=== PATIENT | female | born 1955 | race Caucasian/White ===

== ENCOUNTER 2018-05-12 10:12 | Emergency (ER) | payer BC ==
[~2018-05-12] VITALS: Ht 175.3 cm; Wt 88.5 kg
[~2018-05-12 10:12] MED LIST: CONEST1.25; HYDACE5 PO; IBUP600 PO; NAPR500 PO; [UNRECOGNIZED DRUG - REMARK]
[2018-05-12] MEDS ORDERED: AMOX250 PO (10:32)
[2018-05-12] MEDS ORDERED: DICL75ER PO (10:32)
[2018-05-12] MEDS ORDERED: ESTR2 PO (10:33)
[2018-05-12] MEDS ORDERED: NEBI5 PO (10:33)
[2018-05-12] MEDS ORDERED: ONDA4ODT MM (10:34)
[2018-05-12] MEDS ORDERED: LISI20 PO (10:34)
[2018-05-12 11:03] LABS: BASOPHILS ABSOLUTE AUTO 0.01 K/mm3 (0.00-0.23); BASOPHILS PERCENT AUTO 0 % (0-2); EOSINOPHILS ABSOLUTE AUTO 0.08 K/mm3 (0.00-0.68); EOSINOPHILS PERCENT AUTO 2 % (0-6); Hematocrit 41.7 % (33.0-51.0); Hemoglobin 13.5 g/dL (11.5-16.0); IMMATURE GRAN ABSOLUTE AUTO 0.02 K/mm3 (0.00-0.10); IMMATURE GRAN PERCENT AUTO 1 % (0-1); LYMPHOCYTES PERCENT AUTO 10 % (21-46); MONOCYTES ABSOLUTE AUTO 0.27 K/mm3 (0.16-1.47); MONOCYTES PERCENT AUTO 7 % (4-13); Mean Corpuscular HGB 28.5 pg (26.0-34.0); Mean Corpuscular HGB Conc 32.4 g/dL (31.5-36.5); Mean Corpuscular Volume 88 fL (80-100); Mean Platelet Volume 11.1 fL (9.1-12.4); NEUTROPHILS ABSOLUTE AUTO 3.39 K/mm3 (1.96-9.15); NEUTROPHILS PERCENT AUTO 81 % (41-73); Platelet Count 232 K/mm3 (150-400); RDW Coefficient Variation 13.7 % (11.7-14.2); RDW Standard Deviation 44.5 fL (35.1-46.3); Red Blood Cell Count 4.73 M/mm3 (3.80-5.20); White Blood Cell Count 4.17 K/mm3 (4.00-11.30)
[2018-05-12 11:23] LABS: Alanine Aminotransfer (ALT/SGP 28 U/L (12-78); Albumin, Blood 3.4 g/dL (3.4-5.0); Albumin/Globulin Ratio 0.9 (0.8-1.8); Alk Phos 70 U/L (50-136); Anion Gap 9 mmol/L (6-16); Aspartate Aminotrans (AST/SGOT 19 U/L (12-37); Bilirubin, Total 0.5 mg/dL (0.1-1.0); Blood Urea Nitrogen 18 mg/dL (8-24); Bun/Creatinine Ratio 29.3 (12.0-20.0); CO2, Blood 24 mmol/L (21-32); Calcium, Blood 8.8 mg/dL (8.5-10.1); Chloride, Blood 106 mmol/L (98-108); Creatinine, Blood 0.62 mg/dL (0.40-1.00); Globulin, Blood 3.7 g/dL (2.2-4.0); Glomerular Filtration Rate >60 (60-); Glucose, Blood 109 mg/dL (70-99); Potassium, Blood 3.8 mmol/L (3.5-5.5); Sodium, Blood 139 mmol/L (136-145); Total Protein, Blood 7.1 g/dL (6.4-8.2)
[2018-05-12] MEDS ORDERED: Prednisone20 MG PO (14:40)
[2018-05-12] MEDS ORDERED: PROM25 PO (14:40)
[2018-05-12] MEDS ORDERED: Dicyclomine HCl20 MG PO (14:40)
== END 2018-05-12 15:30 | disposition home or self-care (01) ==
LOC: ER 10:12
PROVIDERS: Emergency Medicine
DX: R10.9 Unspecified abdominal pain (principal); Z88.1 Allergy status to other antibiotic agents; Z79.899 Other long term (current) drug therapy
CPT/HCPCS: 36415; 74177; 80053; 83690; 84484; 85025; 93005; 93010; 96374; 96375; 96376; 99284; J2405; J3010; J7120; Q9967

== ENCOUNTER 2020-08-31 18:54 | Observation (INO) | payer SELFPAY ==
[~2020-08-31] VITALS: Ht 175.3 cm; Wt 89.6 kg
[~2020-08-31 18:54] MED LIST changes: +AMOX250 PO; +ASPI325 PO; +DICL75ER PO; +Dicyclomine HCl20 MG PO; +ESTR2 PO; +LISI20 PO; +NEBI5 PO; +ONDA4ODT MM; +Omeprazole20 M1 PO; +PROM25 PO; +Prednisone20 MG PO
[2020-08-31 20:18] LABS: BASOPHILS ABSOLUTE AUTO 0.02 K/mm3 (0.00-0.23); BASOPHILS PERCENT AUTO 0 % (0-2); EOSINOPHILS ABSOLUTE AUTO 0.01 K/mm3 (0.00-0.68); EOSINOPHILS PERCENT AUTO 0 % (0-6); Hematocrit 41.4 % (33.0-51.0); IMMATURE GRAN ABSOLUTE AUTO 0.12 K/mm3 (0.00-0.10); IMMATURE GRAN PERCENT AUTO 2 % (0-1); LYMPHOCYTES ABSOLUTE AUTO 0.74 K/mm3 (0.84-5.20); LYMPHOCYTES PERCENT AUTO 10 % (21-46); MONOCYTES ABSOLUTE AUTO 0.24 K/mm3 (0.16-1.47); MONOCYTES PERCENT AUTO 3 % (4-13); Mean Corpuscular HGB Conc 31.4 g/dL (31.5-36.5); Mean Corpuscular Volume 89 fL (80-100); Mean Platelet Volume 10.7 fL (9.1-12.4); NEUTROPHILS ABSOLUTE AUTO 6.04 K/mm3 (1.96-9.15); NEUTROPHILS PERCENT AUTO 84 % (41-73); Platelet Count 287 K/mm3 (150-400); RDW Coefficient Variation 13.2 % (11.7-14.2); RDW Standard Deviation 42.9 fL (35.1-46.3); Red Blood Cell Count 4.65 M/mm3 (3.80-5.20); White Blood Cell Count 7.17 K/mm3 (4.00-11.30)
[2020-08-31 20:31] LABS: Alanine Aminotransfer (ALT/SGP 27 U/L (12-78); Albumin, Blood 2.9 g/dL (3.4-5.0); Albumin/Globulin Ratio 0.6 (0.8-1.8); Alk Phos 95 U/L (50-136); Anion Gap 9 mmol/L (6-16); Aspartate Aminotrans (AST/SGOT 38 U/L (12-37); Bilirubin, Total 0.4 mg/dL (0.1-1.0); Blood Urea Nitrogen 16 mg/dL (8-24); CO2, Blood 26 mmol/L (21-32); Calcium, Blood 10.6 mg/dL (8.5-10.1); Chloride, Blood 104 mmol/L (98-108); Creatinine, Blood 0.76 mg/dL (0.40-1.00); Glomerular Filtration Rate >60 (60-); Glucose, Blood 111 mg/dL (70-99); Potassium, Blood 3.9 mmol/L (3.5-5.5); Sodium, Blood 139 mmol/L (136-145); Total Protein, Blood 7.9 g/dL (6.4-8.2)
[2020-08-31] MEDS ORDERED: NEBI5 PO (23:44)
[2020-08-31] MEDS ORDERED: GABA400 PO (23:46)
[2020-08-31] MEDS ORDERED: GABA100 (23:47)
--- NOTE | 2020-09-01 01:33 | NUR ---
08/31/20 1499 REPORT RECEIVED FROM PEPPER COONEY VIA ER; TO ROOM 338 PER CART FROM ER.
--- NOTE | 2020-09-01 03:32 | NUR ---
SHIFT SUMMARY: 65 Y/O FEMALE RESTED COMFORTABLY ALL SHIFT; PT HAD LOW GRADE TEMPERATURE 100.1 UPON ARRIVAL TO UNIT, SKIN WARM, DRY AND PALE; ALERT AND ORIENTED X 4; C/O GENERALIZED BODY ACHE RATED 9/10 WITH NORCO 5/325MG PO GIVEN WITH RELIEF FELT; BED LOW POSITION WITH CALL LIGHT AT SIDE.
--- NOTE | 2020-09-01 17:05 | NUR ---
SHIFT SUMMARY PT A/O X4 AND IND IN THE ROOM. C/O OF NAUSEA AND GENERALIZED ACHES AND PAINS. LOW GRADE FEVER OF 99-100. HAVING BOUTS OF DIARRHEA. LOW PO INTAKE. BEEN GIVING TYLENOL; ZOFRAN; AND HYDROXIZINE. ANXIOUS WITH CRYING AT TIMES. O2 SAT 92% ON ROOM AIR. VSS AND REMARKABLE CHANGES THIS SHIFT. WILL CONTINUE TO MONITOR.
--- NOTE | 2020-09-01 19:26 | NUR ---
65 Y/O FEMALE REMAINS ON DROPLET ISOLATION PRECAUTIONS DUE TO COVID 19 DIAGNOSIS; ALERT AND ORIENTED X 4.
--- NOTE | 2020-09-02 04:17 | NUR ---
SHIFT SUMMARY: 65 Y/O FEMALE RESTED COMFORTABLY ALL SHIFT; DENIES PAIN OR NAUSEA; PT HAD ONE EPISODE OF DIARRHEA LOOSE YELLOW BEGINNING OF SHIFT; PT REMAINS ON DROPLET ISOLATION FOR COVID 19; AFEBRILE; ALERT AND ORIENTED X 4; BED LOW POSITION WITH CALL LIGHT AT SIDE.
[2020-09-02] MEDS ORDERED: LOPERAMIDE2 M2 PO (12:33)
[2020-09-02] MEDS ORDERED: HYDHCL25 PO (12:33)
--- NOTE | 2020-09-02 14:12 | NUR ---
discharge summary patient is pleasant, alert and oriented. denies any concerns at time of discharge. her iv was removed. reports that she is going home with her and that she is aware he should be tested.
== END 2020-09-02 13:15 | disposition home or self-care (01) ==
LOC: ER 18:54 → MEDS 18:55
PROVIDERS: Physician Assistant; ADMIT Internal Medicine
DX: U07.1 COVID-19 (principal); R19.7 Diarrhea, unspecified; E86.0 Dehydration; I10 Essential (primary) hypertension; G47.33 Obstructive sleep apnea (adult) (pediatric); Z88.5 Allergy status to narcotic agent; Z88.1 Allergy status to other antibiotic agents; Z88.4 Allergy status to anesthetic agent; Z79.82 Long term (current) use of aspirin; Z79.899 Other long term (current) drug therapy
CPT/HCPCS: 36415; 71045; 80053; 82728; 83690; 85025; 85379; 96361; 96372; 96374; 96375; 96376; 99285-25; A9270; A9270-GY; G0378; J1170; J1650; J2405; J2550; J7030; J7120

== ENCOUNTER → 2024-12-01 | Outpatient (CLI) | payer OTHER ==
[~2024-12-01] MED LIST changes: +GABA100; +GABA400 PO; +HYDHCL25 PO; +LOPERAMIDE2 M2 PO
== END ==
LOC: LAB SHORT 08:22 → LAB 08:22
DX: D23.111 Other benign neoplasm of skin of right upper eyelid, including canthus (principal)
CPT/HCPCS: 88305

== ENCOUNTER 2025-01-21 09:44 | Day surgery (SDC) | payer OTHER ==
[~2025-01-21] VITALS: Ht 175.3 cm; Wt 95.5 kg
[~2025-01-21 09:44] MED LIST changes: +AMLO5 PO; +BACL20 PO; +GABA300 PO; -GABA400 PO; +Lactated Ringer's 1,000 ML IV SCH; +PRAV20 PO
[2025-01-21 10:09] VITALS: BP 132/77
--- NOTE | 2025-01-21 10:23 | NUR ---
History, Chart, Medications and Allergies reviewed before start of procedure. Lungs clear T/O to Auscultation. Patient states colon prep results clear. Patient confirms NPO status and agrees with scheduled surgery. Patient States Post-Procedure ride home has been arranged.
[2025-01-21] MEDS ORDERED: propofoL 80 ML IV ONE (10:43)
[2025-01-21] MEDS ORDERED: Ondansetron HCl 2 MG / ML 2ML Vial ONE (11:00)
--- NOTE | 2025-01-21 11:00 | NUR ---
01/21/25 Yina Forrest History, Chart, Medications and Allergies reviewed before start of procedure. DR POND PROVIDING ANESTHESIA SEE RECORDS
[2025-01-21] MEDS ORDERED: Dexamethasone Sod Phos 10 MG/ML 1ML VIAL ONE (11:01)
[2025-01-21 11:13] VITALS: BP 112/62
--- NOTE | 2025-01-21 11:13 | NUR ---
PT TO DAY SURGERY STEP DOWN FROM COLONOSCOPY. BEDSIDE REPORT RECEIVED. PT IS AWAKE, ALERT AND ORIENTED; ABLE TO MOVE SELF IN BED. VSS. NO COMPLAINTS AT THIS TIME.
--- NOTE | 2025-01-21 11:24 | NUR ---
PT DECLINES PO FLUIDS. Discharge instructions reviewed with patient. Patient verbalizes understanding. Copy given to patient to take home. Patient States Post-Procedure ride home has been arranged.
[2025-01-21 11:28] VITALS: BP 122/68
--- NOTE | 2025-01-21 11:35 | NUR ---
Patient up to Ambulate independently. Gait steady. Discharged via wheelchair to private car for ride home.
== END 2025-01-21 11:35 | disposition home or self-care (01) ==
LOC: ORSCMMR 09:44 → ORD 11:00 → ORSCMMR 11:35
PROVIDERS: Surgery
PROC: 0DJD8ZZ Inspection of Lower Intestinal Tract, Via Natural or Artificial Opening Endoscopic (ICD-10-PCS; principal; 2025-01-21 11:00)
DX: Z12.11 Encounter for screening for malignant neoplasm of colon (principal); Z80.0 Family history of malignant neoplasm of digestive organs; K57.30 Diverticulosis of large intestine without perforation or abscess without bleeding; I10 Essential (primary) hypertension; K21.9 Gastro-esophageal reflux disease without esophagitis; G47.33 Obstructive sleep apnea (adult) (pediatric); Z79.899 Other long term (current) drug therapy
CPT/HCPCS: J1100; J2405; J2704; J7120

== ENCOUNTER 2025-06-13 10:27 | Observation (INO) | payer OTHER ==
[~2025-06-13] VITALS: Ht 175.3 cm; Wt 88.1 kg
[~2025-06-13 10:27] MED LIST changes: -Lactated Ringer's 1,000 ML IV SCH
[2025-06-13 11:22] LABS: BASOPHILS ABSOLUTE AUTO 0.07 K/mm3 (0.00-0.23); BASOPHILS PERCENT AUTO 1 % (0-2); EOSINOPHILS ABSOLUTE AUTO 0.28 K/mm3 (0.00-0.68); EOSINOPHILS PERCENT AUTO 4 % (0-6); Hematocrit 35.7 % (33.0-51.0); Hemoglobin 11.3 g/dL (11.5-16.0); IMMATURE GRAN ABSOLUTE AUTO 0.02 K/mm3 (0.00-0.10); IMMATURE GRAN PERCENT AUTO 0 % (0-1); LYMPHOCYTES ABSOLUTE AUTO 1.30 K/mm3 (0.84-5.20); LYMPHOCYTES PERCENT AUTO 18 % (21-46); MONOCYTES ABSOLUTE AUTO 0.47 K/mm3 (0.16-1.47); MONOCYTES PERCENT AUTO 7 % (4-13); Mean Corpuscular HGB Conc 31.7 g/dL (31.5-36.5); Mean Corpuscular Volume 95 fL (80-100); NEUTROPHILS ABSOLUTE AUTO 5.01 K/mm3 (1.96-9.15); NEUTROPHILS PERCENT AUTO 70 % (41-73); NRBC ABSOLUTE 0.00 K/mm3 (0.00-0.02); NRBC Auto 0.0 /100 WBC (0.0-0.2); Platelet Count 250 K/mm3 (150-400); RDW Coefficient Variation 13.7 % (11.7-14.2); RDW Standard Deviation 48.6 fL (35.1-46.3)
[2025-06-13 11:53] LABS: Source, Urine Clean Catch
[2025-06-13 11:56] LABS: Bilirubin, Urine Neg (Neg); Color, Urine Yellow (P-Yellow); Glucose Qualitative, Urine Neg (Neg); Ketones, Urine Neg (Neg); Leukocyte Esterase, Urine 2+ (Neg); Protein, Urine 2+ (Neg); Specific Gravity, Urine 1.025 (1.003-1.022); Urobilinogen, Urine NORM (Normal)
[2025-06-13 12:01] LABS: Alanine Aminotransfer (ALT/SGP 23.0 U/L (12-78); Albumin, Blood 3.5 g/dL (3.4-5.0); Albumin/Globulin Ratio 0.9 (0.8-1.8); Anion Gap 9.0 mmol/L (3-11); Aspartate Aminotrans (AST/SGOT 23.0 U/L (12-37); Bilirubin, Total 0.4 mg/dL (0.1-1.0); Blood Urea Nitrogen 41.0 mg/dL (8-24); CO2, Blood 21.0 mmol/L (21-32); Calcium, Blood 9.7 mg/dL (8.5-10.1); Chloride, Blood 111.0 mmol/L (98-108); Creatinine, Blood 2.41 mg/dL (0.40-1.00); Globulin, Blood 4.0 g/dL (2.2-4.0); Glucose, Blood 93.0 mg/dL (70-99); Potassium, Blood 5.6 mmol/L (3.5-5.5); Sodium, Blood 135.0 mmol/L (136-145); Thyroid Stimulating Hormone 1.38 uIU/mL (0.360-4.800); Total Protein, Blood 7.5 g/dL (6.4-8.2)
[2025-06-13] MEDS ORDERED: NS 1,000 ML IV SCH ×2 (12:05→13:00)
[2025-06-13 12:12] LABS: White Blood Cells, Urine TNTC /hpf (0-5)
[2025-06-13] MEDS ORDERED: CefTRIAXone Sodium 1,000 MG in NS 100 ML IV ONE (12:20)
[2025-06-13] MEDS ORDERED: Heparin Sodium,Porcine 5,000 UNIT/0.5 ML SDV SC SCH (14:00)
[2025-06-13 16:37] VITALS: BP 114/59
[2025-06-13] MEDS ORDERED: DICL75ER PO (16:39)
[2025-06-13] MEDS ORDERED: PRAV20 PO (16:39)
--- NOTE | 2025-06-13 17:48 | NUR ---
SUMMARY PT BROUGHT UP FROM ER VIA WHEELCHAIR. A/OX4. ROOM AIR. SLOW SLURRED SPEECH. NIH COMPLETED AND SCORE OF 7. 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 X-RAY LUMBER SPINE ORDERED PER SHIPPING AND RECEIVING WEIGHER REJI. MRI PENDING. TOX SCREEN PENDING, PT HAS NOT URINATED SINCE BEING ON UNIT. FAMILY PRESENT AT BEDSIDE DURING ADMISSION. PT WAS ABLE TO STAND AND TRANSFER SELF FROM WHEELCHAIR TO BED. NORMALLY INDEPENDENT AT BASELINE. SKIN INTACT. MED REC COMPLETED.
[2025-06-13 17:59] LABS: Anion Gap 8.0 mmol/L (3-11); Blood Urea Nitrogen 36.0 mg/dL (8-24); CO2, Blood 24.0 mmol/L (21-32); Calcium, Blood 9.9 mg/dL (8.5-10.1); Chloride, Blood 113.0 mmol/L (98-108); Creatinine, Blood 2.17 mg/dL (0.40-1.00); Glucose, Blood 88.0 mg/dL (70-99); Potassium, Blood 5.1 mmol/L (3.5-5.5); Sodium, Blood 140.0 mmol/L (136-145)
[2025-06-13 19:22] VITALS: BP 122/61
[2025-06-13 19:34] LABS: U Amphetamine Screen Not Detected; U Barbituate Screen Not Detected; U Benzodiazapine Screen Not Detected; U Buprenorphine Screen Not Detected; U Cannabinoids Screen Not Detected; U Cocaine Screen Not Detected; U Methadone Screen Not Detected; U Methamphetamine Screen Not Detected; U Opiates Screen Not Detected; U Oxycodone Screen Not Detected; U Phencyclidine Screen Not Detected
[2025-06-14 00:07] VITALS: BP 115/56
[2025-06-14 03:27] VITALS: BP 123/64
--- NOTE | 2025-06-14 04:01 | NUR ---
SHIFT SUMMARY PT ALERT ORIENTED X 4 ABLE TO VERBALIZE NEEDS REQUIRES SBA WITH WALKER TO GET UP TO BATHROOM. SHE STILL HAS SLIGHTLY SLURRED SPEECH BUT ITS GETTING MUCH BETTER HER GAIT IS MUCH BETTER WITH AMBULATION. NIH SCORE IS NOW A 5 AND WAS A 7. REMAINS ON ROCEPHIN FOR UTI USES A CPAP AT NIGHT AND REMAINS ON A CONTINUOUS PULSE OX. C/O GENERAL PAIN MEDICATED WITH TYLENOL WITH GOOD PAIN RELIEF. HER MRI WAS DONE YESTERDAY WAS GOOD. TOX SCREEN WAS NEGATIVE. REMAINS ON NS AT 125. SHE STATED THAT HER VISION HAS ALSO GREATLY IMPROVED. SHES RESTING IN BED AT THIS TIME WITH CALL LIGHT IN REACH
[2025-06-14 06:04] LABS: BASOPHILS ABSOLUTE AUTO 0.06 K/mm3 (0.00-0.23); BASOPHILS PERCENT AUTO 2 % (0-2); EOSINOPHILS ABSOLUTE AUTO 0.34 K/mm3 (0.00-0.68); EOSINOPHILS PERCENT AUTO 10 % (0-6); Hematocrit 34.8 % (33.0-51.0); Hemoglobin 10.7 g/dL (11.5-16.0); IMMATURE GRAN ABSOLUTE AUTO 0.01 K/mm3 (0.00-0.10); IMMATURE GRAN PERCENT AUTO 0 % (0-1); LYMPHOCYTES ABSOLUTE AUTO 1.22 K/mm3 (0.84-5.20); LYMPHOCYTES PERCENT AUTO 35 % (21-46); MONOCYTES ABSOLUTE AUTO 0.33 K/mm3 (0.16-1.47); MONOCYTES PERCENT AUTO 9 % (4-13); Mean Corpuscular HGB Conc 30.7 g/dL (31.5-36.5); Mean Corpuscular Volume 94 fL (80-100); NEUTROPHILS ABSOLUTE AUTO 1.54 K/mm3 (1.96-9.15); NEUTROPHILS PERCENT AUTO 44 % (41-73); NRBC ABSOLUTE 0.00 K/mm3 (0.00-0.02); NRBC Auto 0.0 /100 WBC (0.0-0.2); Platelet Count 226 K/mm3 (150-400); RDW Coefficient Variation 13.7 % (11.7-14.2); RDW Standard Deviation 47.5 fL (35.1-46.3)
[2025-06-14 06:33] LABS: Alanine Aminotransfer (ALT/SGP 22.0 U/L (12-78); Albumin, Blood 3.1 g/dL (3.4-5.0); Albumin/Globulin Ratio 0.8 (0.8-1.8); Anion Gap 9.0 mmol/L (3-11); Aspartate Aminotrans (AST/SGOT 16.0 U/L (12-37); Bilirubin, Total 0.4 mg/dL (0.1-1.0); Blood Urea Nitrogen 32.0 mg/dL (8-24); CO2, Blood 23.0 mmol/L (21-32); Calcium, Blood 9.6 mg/dL (8.5-10.1); Chloride, Blood 112.0 mmol/L (98-108); Creatinine, Blood 1.77 mg/dL (0.40-1.00); Globulin, Blood 3.7 g/dL (2.2-4.0); Glucose, Blood 87.0 mg/dL (70-99); Potassium, Blood 5.6 mmol/L (3.5-5.5); Sodium, Blood 138.0 mmol/L (136-145); Total Protein, Blood 6.8 g/dL (6.4-8.2)
[2025-06-14 07:38] VITALS: BP 115/61
[2025-06-14] MEDS ORDERED: CefTRIAXone Sodium 1,000 MG in NS 100 ML IV SCH (09:00)
[2025-06-14 11:36] VITALS: BP 144/74
[2025-06-14 14:54] VITALS: BP 129/70
[2025-06-14 15:15] LABS: Anion Gap 6.0 mmol/L (3-11); Blood Urea Nitrogen 29.0 mg/dL (8-24); CO2, Blood 25.0 mmol/L (21-32); Calcium, Blood 10.3 mg/dL (8.5-10.1); Chloride, Blood 109.0 mmol/L (98-108); Creatinine, Blood 1.56 mg/dL (0.40-1.00); Glucose, Blood 88.0 mg/dL (70-99); Potassium, Blood 5.0 mmol/L (3.5-5.5); Sodium, Blood 135.0 mmol/L (136-145)
[2025-06-14] MEDS ORDERED: CEFP200 PO (15:52)
--- NOTE | 2025-06-14 16:31 | NUR ---
patient and family verbalized discharge instructions. patient to family vehical via wc with all belongings.
[2025-06-16 09:34] LABS: ANTI-NUCLEAR AB ANA,IGG ELISA None Detected (None Detected)
[2025-06-16 14:48] LABS: MYELOPEROXIDASE (MPO) AB,IGG 0 AU/mL (0-19); SERINE PROTEINASE 3 PR3 AB,IGG 0 AU/mL (0-19)
== END 2025-06-14 16:31 | disposition home or self-care (01) ==
LOC: ER 10:27 → MEDS 10:28
PROVIDERS: Emergency Medicine; Physician Assistant; ADMIT Student in an Organized Health Care Education/Training Program
DX: R53.1 Weakness (principal); R29.818 Other symptoms and signs involving the nervous system; N17.9 Acute kidney failure, unspecified; N39.0 Urinary tract infection, site not specified; E87.5 Hyperkalemia; D64.9 Anemia, unspecified; I10 Essential (primary) hypertension; M54.50 Low back pain, unspecified; G89.29 Other chronic pain; E78.5 Hyperlipidemia, unspecified; R13.10 Dysphagia, unspecified; E66.9 Obesity, unspecified; Z79.899 Other long term (current) drug therapy
CPT/HCPCS: 36415; 70450; 70551; 72100; 80048; 80053; 81001; 82607; 82746; 83516; 84443; 85025; 86038; 87077; 87086; 87186; 92610; 93005; 93010; 93880; 94762; 96361; 96365-59; 96366; 96372; 97110; 97162; 99285-25; A9270; G0378; J0696; J1644; J7030

== ENCOUNTER 2025-07-31 12:19 | Emergency (ER) | payer OTHER ==
[~2025-07-31] VITALS: Ht 175.3 cm; Wt 83.0 kg
[~2025-07-31 12:19] MED LIST changes: +CEFP200 PO
[2025-07-31 12:55] LABS: BASOPHILS ABSOLUTE AUTO 0.05 K/mm3 (0.00-0.23); BASOPHILS PERCENT AUTO 1 % (0-2); EOSINOPHILS ABSOLUTE AUTO 0.16 K/mm3 (0.00-0.68); EOSINOPHILS PERCENT AUTO 4 % (0-6); Hematocrit 35.4 % (33.0-51.0); Hemoglobin 11.6 g/dL (11.5-16.0); IMMATURE GRAN ABSOLUTE AUTO 0.01 K/mm3 (0.00-0.10); IMMATURE GRAN PERCENT AUTO 0 % (0-1); LYMPHOCYTES ABSOLUTE AUTO 1.50 K/mm3 (0.84-5.20); LYMPHOCYTES PERCENT AUTO 33 % (21-46); MONOCYTES ABSOLUTE AUTO 0.37 K/mm3 (0.16-1.47); MONOCYTES PERCENT AUTO 8 % (4-13); Mean Corpuscular HGB Conc 32.8 g/dL (31.5-36.5); Mean Corpuscular Volume 91 fL (80-100); NEUTROPHILS ABSOLUTE AUTO 2.44 K/mm3 (1.96-9.15); NEUTROPHILS PERCENT AUTO 54 % (41-73); NRBC ABSOLUTE 0.00 K/mm3 (0.00-0.02); NRBC Auto 0.0 /100 WBC (0.0-0.2); Platelet Count 253 K/mm3 (150-400); RDW Coefficient Variation 13.5 % (11.7-14.2); RDW Standard Deviation 45.5 fL (35.1-46.3)
[2025-07-31 13:02] LABS: Source, Urine Clean Catch
[2025-07-31 13:26] LABS: Alanine Aminotransfer (ALT/SGP 23.0 U/L (12-78); Albumin, Blood 3.7 g/dL (3.4-5.0); Albumin/Globulin Ratio 1.1 (0.8-1.8); Anion Gap 7.0 mmol/L (3-11); Aspartate Aminotrans (AST/SGOT 23.0 U/L (12-37); Bilirubin, Total 0.3 mg/dL (0.1-1.0); Blood Urea Nitrogen 12.0 mg/dL (8-24); CO2, Blood 26.0 mmol/L (21-32); Calcium, Blood 9.9 mg/dL (8.5-10.1); Chloride, Blood 108.0 mmol/L (98-108); Creatinine, Blood 0.91 mg/dL (0.40-1.00); Globulin, Blood 3.5 g/dL (2.2-4.0); Glucose, Blood 87.0 mg/dL (70-99); Potassium, Blood 3.9 mmol/L (3.5-5.5); Sodium, Blood 137.0 mmol/L (136-145); Total Protein, Blood 7.2 g/dL (6.4-8.2)
[2025-07-31 13:41] LABS: Bilirubin, Urine Neg (Neg); Color, Urine Yellow (P-Yellow); Glucose Qualitative, Urine Neg (Neg); Ketones, Urine Neg (Neg); Leukocyte Esterase, Urine Neg (Neg); Protein, Urine 1+ (Neg); Specific Gravity, Urine 1.020 (1.003-1.022); Urobilinogen, Urine NORM (Normal)
[2025-07-31 14:04] LABS: Red Blood Cells, Urine 0-2 /hpf (0-2)
[2025-07-31] MEDS ORDERED: Ketorolac Tromethamine 15mg Vial IV ONE ×2 (14:55→16:10)
[2025-07-31] MEDS ORDERED: Lidocaine 4% 1 Patch TOP ONE ×2 (14:55→16:10)
[2025-07-31 15:04] VITALS: BP 135/73
[2025-07-31] MEDS ORDERED: ZEPBOUND10 MG/0.5 SQ (15:40)
[2025-07-31] MEDS ORDERED: CLIMARA1 EACH TOP (15:40)
[2025-07-31] MEDS ORDERED: DICL75ER PO (15:40)
[2025-07-31] MEDS ORDERED: LISI20 PO (15:41)
[2025-07-31] MEDS ORDERED: Dexamethasone Sod Phos 10 MG/ML 1ML VIAL IV ONE (16:10)
== END 2025-08-02 00:45 | disposition home or self-care (01) ==
LOC: ER 12:19
PROVIDERS: Emergency Medicine
DX: S39.012A Strain of muscle, fascia and tendon of lower back, initial encounter (principal); Z79.2 Long term (current) use of antibiotics; Z79.899 Other long term (current) drug therapy; I10 Essential (primary) hypertension; K21.9 Gastro-esophageal reflux disease without esophagitis; X58.XXXA Exposure to other specified factors, initial encounter
CPT/HCPCS: 74177; 80053; 81001; 85025; 87086; 96374-59; 96375; 99284-25; A9270; J1100; J1885; Q9967

== ENCOUNTER 2025-10-19 10:08 | Observation (INO) | payer OTHER ==
[~2025-10-19] VITALS: Ht 167.6 cm; Wt 83.1 kg
[~2025-10-19 10:08] MED LIST changes: +CLIMARA1 EACH TOP; +ZEPBOUND10 MG/0.5 SQ
[2025-10-19 11:07] LABS: BASOPHILS ABSOLUTE AUTO 0.05 K/mm3 (0.00-0.23); BASOPHILS PERCENT AUTO 1 % (0-2); EOSINOPHILS ABSOLUTE AUTO 0.20 K/mm3 (0.00-0.68); EOSINOPHILS PERCENT AUTO 4 % (0-6); Hematocrit 33.8 % (33.0-51.0); Hemoglobin 10.9 g/dL (11.5-16.0); IMMATURE GRAN ABSOLUTE AUTO 0.00 K/mm3 (0.00-0.10); IMMATURE GRAN PERCENT AUTO 0 % (0-1); LYMPHOCYTES ABSOLUTE AUTO 1.33 K/mm3 (0.84-5.20); LYMPHOCYTES PERCENT AUTO 27 % (21-46); MONOCYTES ABSOLUTE AUTO 0.42 K/mm3 (0.16-1.47); MONOCYTES PERCENT AUTO 9 % (4-13); Mean Corpuscular HGB Conc 32.2 g/dL (31.5-36.5); Mean Corpuscular Volume 92 fL (80-100); NEUTROPHILS ABSOLUTE AUTO 2.91 K/mm3 (1.96-9.15); NEUTROPHILS PERCENT AUTO 59 % (41-73); NRBC ABSOLUTE 0.00 K/mm3 (0.00-0.02); NRBC Auto 0.0 /100 WBC (0.0-0.2); Platelet Count 204 K/mm3 (150-400); RDW Coefficient Variation 13.2 % (11.7-14.2); RDW Standard Deviation 44.6 fL (35.1-46.3)
[2025-10-19 11:35] LABS: Alanine Aminotransfer (ALT/SGP 21.0 U/L (12-78); Albumin, Blood 3.4 g/dL (3.4-5.0); Albumin/Globulin Ratio 1.1 (0.8-1.8); Anion Gap 9.0 mmol/L (3-11); Aspartate Aminotrans (AST/SGOT 14.0 U/L (12-37); Bilirubin, Total 0.3 mg/dL (0.1-1.0); Blood Urea Nitrogen 20.0 mg/dL (8-24); CO2, Blood 23.0 mmol/L (21-32); Calcium, Blood 9.6 mg/dL (8.5-10.1); Chloride, Blood 108.0 mmol/L (98-108); Creatinine, Blood 1.08 mg/dL (0.40-1.00); Globulin, Blood 3.2 g/dL (2.2-4.0); Glucose, Blood 86.0 mg/dL (70-99); Potassium, Blood 4.3 mmol/L (3.5-5.5); Sodium, Blood 136.0 mmol/L (136-145); Total Protein, Blood 6.6 g/dL (6.4-8.2)
[2025-10-19] MEDS ORDERED: FLU VACC TS2025(65UP)/MF59C/PF 45 MCG/0.5 ML SYRINGE IM SCH (14:30)
[2025-10-19 14:48] LABS: Source, Urine Clean Catch
[2025-10-19 14:56] LABS: CHOL/HDL RATIO 3.8; Cholesterol 199 mg/dL (50-200); HDL Cholesterol 53 mg/dL (>39); LDL/HDL RATIO 1.9; Low Density Lipoprotein Chol 100 mg/dL (0-110); Magnesium, Blood 1.4 mg/dL (1.6-2.4); Triglycerides 232 mg/dL (30-160); Very Low Density Lipoprot Chol 46 mg/dL (6-32)
[2025-10-19 15:03] LABS: Bilirubin, Urine Neg (Neg); Glucose Qualitative, Urine Neg (Neg); Ketones, Urine Neg (Neg); Leukocyte Esterase, Urine Neg (Neg); Protein, Urine 1+ (Neg); Specific Gravity, Urine 1.010 (1.003-1.022); Urobilinogen, Urine NORM (Normal)
[2025-10-19 15:12] LABS: Color, Urine Pale Yellow (P-Yellow)
[2025-10-19] MEDS ORDERED: Mag Sulfate 1 GM/D5% 100ML 100 ML IV STA (15:23)
[2025-10-19 15:34] VITALS: BP 159/78
--- NOTE | 2025-10-19 16:03 | NUR ---
ASSUMPTION OF CARE: ASSUMED CARE OF PT AT APPROX 1525. REPORT FROM JAQUELINE PABON IN ED. PT A/O X4, SLURRED SPEECH. NIH SCORE OF 4. RIGHT SIDED DEFECITS PRESENT. PT STATES SPEECH HAS IMPROVED FROM THIS AM. PT NOW ABLE TO SPEEK FULL SENTENCES. PT ALSO STATES TACTILE DISTURBANCES HAS RESOLVED. SBA WITH FWW TO BATHROOM, ABLE TO VOID URINE UPON TRANSPORT. PT ON ROOM AIR, SATS >95%. DENIES SOB. NSR 60s, DENIES CHEST PAIN/PRESSURE. OTHER VITAL SIGNS STABLE. WILL REPORT TO ONCOMING RN.
[2025-10-19 20:52] VITALS: BP 146/79
[2025-10-20 00:48] VITALS: BP 113/69
[2025-10-20 03:49] LABS: BASOPHILS ABSOLUTE AUTO 0.06 K/mm3 (0.00-0.23); BASOPHILS PERCENT AUTO 1 % (0-2); EOSINOPHILS ABSOLUTE AUTO 0.24 K/mm3 (0.00-0.68); EOSINOPHILS PERCENT AUTO 5 % (0-6); Hematocrit 32.4 % (33.0-51.0); Hemoglobin 10.5 g/dL (11.5-16.0); IMMATURE GRAN ABSOLUTE AUTO 0.00 K/mm3 (0.00-0.10); IMMATURE GRAN PERCENT AUTO 0 % (0-1); LYMPHOCYTES ABSOLUTE AUTO 1.74 K/mm3 (0.84-5.20); LYMPHOCYTES PERCENT AUTO 36 % (21-46); MONOCYTES ABSOLUTE AUTO 0.44 K/mm3 (0.16-1.47); MONOCYTES PERCENT AUTO 9 % (4-13); Mean Corpuscular HGB Conc 32.4 g/dL (31.5-36.5); Mean Corpuscular Volume 92 fL (80-100); NEUTROPHILS ABSOLUTE AUTO 2.38 K/mm3 (1.96-9.15); NEUTROPHILS PERCENT AUTO 49 % (41-73); NRBC ABSOLUTE 0.00 K/mm3 (0.00-0.02); NRBC Auto 0.0 /100 WBC (0.0-0.2); Platelet Count 187 K/mm3 (150-400); RDW Coefficient Variation 13.2 % (11.7-14.2); RDW Standard Deviation 45.1 fL (35.1-46.3)
[2025-10-20 04:17] LABS: Alanine Aminotransfer (ALT/SGP 18.0 U/L (12-78); Albumin, Blood 3.0 g/dL (3.4-5.0); Albumin/Globulin Ratio 1.0 (0.8-1.8); Anion Gap 8.0 mmol/L (3-11); Aspartate Aminotrans (AST/SGOT 13.0 U/L (12-37); Bilirubin, Total 0.4 mg/dL (0.1-1.0); Blood Urea Nitrogen 17.0 mg/dL (8-24); CO2, Blood 24.0 mmol/L (21-32); Calcium, Blood 9.4 mg/dL (8.5-10.1); Chloride, Blood 108.0 mmol/L (98-108); Creatinine, Blood 0.96 mg/dL (0.40-1.00); Globulin, Blood 3.1 g/dL (2.2-4.0); Glucose, Blood 86.0 mg/dL (70-99); Potassium, Blood 4.4 mmol/L (3.5-5.5); Sodium, Blood 136.0 mmol/L (136-145); Total Protein, Blood 6.1 g/dL (6.4-8.2)
[2025-10-20 05:35] VITALS: BP 116/72
[2025-10-20 08:12] VITALS: BP 119/72
[2025-10-20] MEDS ORDERED: Enoxaparin 40 MG/0.4 ML SYR SC SCH (09:00)
[2025-10-20 11:42] VITALS: BP 148/79
[2025-10-20] MEDS ORDERED: CLOP75 PO (12:58)
[2025-10-20] MEDS ORDERED: ASPI81CH PO (12:58)
[2025-10-20] MEDS ORDERED: ATOR40TA PO (12:58)
--- NOTE | 2025-10-20 14:00 | NUR ---
DISCHARGE SUMMARY: PT HAS BEEN COOPERATIVE THE ENTIRE SHIFT, TOLERATING HER DIET AND MEDICATIONS. AWAKE, ORIENTED AND STATED HER SPEECH IS BETTER THAN YESTERDAY. SHE HAS BEEN WAITING FOR HER BEDSIDE 2D ECHO RESULTS TO BE DISCHARGED. WILL PROCESS DISCHARGE ORDERS ONCE AVAILABLE AFTER 2D ECHO RESULTS ARE READY AND ORDERED BY HER DOCTOR.
== END 2025-10-20 16:40 | disposition home or self-care (01) ==
LOC: ER 10:08 → PCU 10:09
PROVIDERS: Emergency Medicine; ADMIT Internal Medicine
DX: G45.9 Transient cerebral ischemic attack, unspecified (principal); I10 Essential (primary) hypertension; K21.9 Gastro-esophageal reflux disease without esophagitis; E78.5 Hyperlipidemia, unspecified; N17.9 Acute kidney failure, unspecified; E83.42 Hypomagnesemia; Z79.899 Other long term (current) drug therapy
CPT/HCPCS: 36415; 70450; 70496; 70498; 80053; 80061; 82947; 83036; 83735; 84443; 85025; 93005; 93010; 93306; 94762; 96365; 96372; 97116; 97162; 99285-25; A9270; G0378; J1650; J2470; J3475; Q9967

== ENCOUNTER 2025-10-22 07:49 | Inpatient (IN) | payer OTHER ==
[~2025-10-22] VITALS: Ht 167.6 cm; Wt 80.5 kg
[~2025-10-22 07:49] MED LIST changes: +ASPI81CH PO; +ATOR40TA PO; +CLOP75 PO
[2025-10-22 08:12] LABS: BASOPHILS ABSOLUTE AUTO 0.07 K/mm3 (0.00-0.23); BASOPHILS PERCENT AUTO 1 % (0-2); EOSINOPHILS ABSOLUTE AUTO 0.31 K/mm3 (0.00-0.68); EOSINOPHILS PERCENT AUTO 6 % (0-6); Hematocrit 37.4 % (33.0-51.0); Hemoglobin 11.7 g/dL (11.5-16.0); IMMATURE GRAN ABSOLUTE AUTO 0.01 K/mm3 (0.00-0.10); IMMATURE GRAN PERCENT AUTO 0 % (0-1); LYMPHOCYTES ABSOLUTE AUTO 1.86 K/mm3 (0.84-5.20); LYMPHOCYTES PERCENT AUTO 34 % (21-46); MONOCYTES ABSOLUTE AUTO 0.52 K/mm3 (0.16-1.47); MONOCYTES PERCENT AUTO 10 % (4-13); Mean Corpuscular HGB Conc 31.3 g/dL (31.5-36.5); Mean Corpuscular Volume 95 fL (80-100); NEUTROPHILS ABSOLUTE AUTO 2.73 K/mm3 (1.96-9.15); NEUTROPHILS PERCENT AUTO 50 % (41-73); NRBC ABSOLUTE 0.00 K/mm3 (0.00-0.02); NRBC Auto 0.0 /100 WBC (0.0-0.2); Platelet Count 237 K/mm3 (150-400); RDW Coefficient Variation 13.3 % (11.7-14.2); RDW Standard Deviation 47.0 fL (35.1-46.3)
[2025-10-22 08:28] LABS: Prothrombin Time Results 9.9 Sec (9.7-11.5)
[2025-10-22 08:31] LABS: Alanine Aminotransfer (ALT/SGP 21.0 U/L (12-78); Albumin, Blood 3.5 g/dL (3.4-5.0); Albumin/Globulin Ratio 1.0 (0.8-1.8); Anion Gap 10.0 mmol/L (3-11); Aspartate Aminotrans (AST/SGOT 18.0 U/L (12-37); Bilirubin, Total 0.5 mg/dL (0.1-1.0); Blood Urea Nitrogen 33.0 mg/dL (8-24); CO2, Blood 21.0 mmol/L (21-32); Calcium, Blood 10.3 mg/dL (8.5-10.1); Chloride, Blood 111.0 mmol/L (98-108); Creatinine, Blood 1.3 mg/dL (0.40-1.00); Globulin, Blood 3.6 g/dL (2.2-4.0); Glucose, Blood 95.0 mg/dL (70-99); Potassium, Blood 4.9 mmol/L (3.5-5.5); Sodium, Blood 137.0 mmol/L (136-145); Total Protein, Blood 7.1 g/dL (6.4-8.2)
[2025-10-22] MEDS ORDERED: ZESTRIL40 MG PO ×2 (08:37)
[2025-10-22] MEDS ORDERED: LORazepam 2 MG/ML 1ML Injection IV ONE (08:40)
[2025-10-22] MEDS ORDERED: FLU VACC TS2025(65UP)/MF59C/PF 45 MCG/0.5 ML SYRINGE IM SCH (09:50)
[2025-10-22 14:18] VITALS: BP 136/68
[2025-10-22] MEDS ORDERED: LORazepam 2 MG/ML 1ML Injection IV PRN (14:35)
--- NOTE | 2025-10-22 15:32 | NUR ---
RN COMPLETED BEDSIDE SWALLOW EVAL AND PT DID NOT STAY AWAKE ENOUGH TO SAFELY PASS SWALLOW EVAL. RN UPDATED PROVIDER AND RECIEVED ORDER FOR RECAL TYLENOL SUPP FOR HEADACHE PT REPORTS. RN ALSO INFORMED PROVIDER PT IS AGITATED AT TIMES, ATTEMPTING TO GET OOB AND PULLING AT IV AND CLOTHING. PLAN FOR PT TO MOVE TO 347 AND HAVE 1:1 SITTER DURING NOC SHIFT WHEN FAMILY IS NOT PRESENT. PT CURRENTLY RESTING IN BED WITH HOME CPAP ON, FAMILY AT BEDSIDE. CALL LIGHT WITHIN REACH. BED ALARM ON.
[2025-10-22] MEDS ORDERED: HydrALAZINE HCl 20 MG / ML 1ML Vial IV PRN (15:35)
[2025-10-22] MEDS ORDERED: Haloperidol Lactate Inj. 5 MG/ML Injection IM PRN (15:40)
[2025-10-22] MEDS ORDERED: NS 1,000 ML IV SCH (16:00)
[2025-10-22 16:38] LABS: pH Blood Venous 7.38 (7.34-7.37)
[2025-10-22] MEDS ORDERED: FentaNYL Citrate 50 MCG/ML 2 ML Injection IV PRN (17:10)
[2025-10-22 17:53] VITALS: BP 115/73
[2025-10-22] MEDS ORDERED: D5W-1/2NS 1,000 ML IV SCH (18:00)
--- NOTE | 2025-10-22 18:05 | NUR ---
PT ADMITTED FROM ER TO MED FLOOR. PT TRANSFERED FROM [facility] TO HOSPITAL BED BY SLIDE SHEET. PT ATTEMPTING TO GET OOB, PULLING AT HER CLOTHING. PT SOMEWHAT REDIRECTABLE BY FAMILY BUT ONLY FOR BREIF MOMENTS. RN DISCUSSED CONCERNS WITH CHARGE WHO AGREES PT TO BE MOVED TO [facility] WITH 1:1 SITTER WHEN FAMILY IS NOT PRESENT. ADMISSION COMPLETED INCLUDING MED REC BY BREAK RN, THIS RN COMPLETED ASSESSMENT AND 2 RN SKIN CHECK WITH EMAIL ENGINEER. NO SKIN ISSUES TO REPORT. TELE IN PLACE - SR 80'S. PT REPORTS MIGRAINE. RN UPDATED PROVIDER RE MIGRAINE AND FAILING OF BEDSIDE SWALLOW EVAL - PT REMAINS NPO STATUS. PROVIDER TO BEDSIDE FOR ASSESSMENT. IMITREX STARTED AND GIVEN. NS @ 125 ML/HR RUNNING PIV. REPORT GIVEN TO RN ASSUMING PT CARE. PT TRAN[facility]ED TO [facility] WITH FAMILY PRESENT. FAMILY ORIENTED TO CALL SYSTEM.
--- NOTE | 2025-10-22 18:18 | NUR ---
ASSUMPTION OF CARE NOTE: PATIENT [facility]IV[facility]IA BED AT 1706 FROM ROM 354. ASSUMED CARE OF PATIENT. PATIENT RESPONDS TO VERBAL STIMULI. PATIENT RECEIVED OT DOSE IV KEPPRA PER ORDER. PATIENT BLOOD SUGAR CHECK Q6-NPO STATUS. PATIENT BLOOD SUGAR 69 TAKEN AT 1749. NOT[address] DEMARCO AND STARTED ON D5 1/2 NS AND RECHECK BLOOD SUGAR IN 3 HRS (2100). SEIZURE PAD IN PLACED TO SIDE RAILS-SEIZURE PRECAUTION. PATIENT FAMILY AT BEDSIDE. PATIENT ON CONTACT ISOLATION FOR HX OF ESBL IN URINE. CALL LIGHT IN REACH.
[2025-10-22 19:30] VITALS: BP 137/80
[2025-10-23 00:11] VITALS: BP 107/53
[2025-10-23 04:02] VITALS: BP 108/56
--- NOTE | 2025-10-23 05:00 | NUR ---
Shift Summary: Pt. A&O to self & place, notable confusion to time, person & situation. Respirations clear & non-labored all VS WNL, c/o intermittent mild headache, no S/S acute pain/discomfort noted. Speech remains slow but not slurred, weak in BLE and requires mod. assist of 2 to transfer onto the commode, pt voiding adequately, is continent of bladder, maintained NPO as ordered, no unsafe and/or abrupt behavior displayed, IVF infusing well via (L) wrist IVL, all safety and comfort measures maintained by staff at all times. Pt. is resting well with call stiles within reach.
[2025-10-23 06:36] LABS: BASOPHILS ABSOLUTE AUTO 0.04 K/mm3 (0.00-0.23); BASOPHILS PERCENT AUTO 1 % (0-2); EOSINOPHILS ABSOLUTE AUTO 0.26 K/mm3 (0.00-0.68); EOSINOPHILS PERCENT AUTO 7 % (0-6); Hematocrit 33.0 % (33.0-51.0); Hemoglobin 10.7 g/dL (11.5-16.0); IMMATURE GRAN ABSOLUTE AUTO 0.01 K/mm3 (0.00-0.10); IMMATURE GRAN PERCENT AUTO 0 % (0-1); LYMPHOCYTES ABSOLUTE AUTO 1.34 K/mm3 (0.84-5.20); LYMPHOCYTES PERCENT AUTO 35 % (21-46); MONOCYTES ABSOLUTE AUTO 0.32 K/mm3 (0.16-1.47); MONOCYTES PERCENT AUTO 8 % (4-13); Mean Corpuscular HGB Conc 32.4 g/dL (31.5-36.5); Mean Corpuscular Volume 91 fL (80-100); NEUTROPHILS ABSOLUTE AUTO 1.83 K/mm3 (1.96-9.15); NEUTROPHILS PERCENT AUTO 48 % (41-73); NRBC ABSOLUTE 0.00 K/mm3 (0.00-0.02); NRBC Auto 0.0 /100 WBC (0.0-0.2); Platelet Count 194 K/mm3 (150-400); RDW Coefficient Variation 13.2 % (11.7-14.2); RDW Standard Deviation 44.0 fL (35.1-46.3)
[2025-10-23 07:01] LABS: Anion Gap 7.0 mmol/L (3-11); Blood Urea Nitrogen 20.0 mg/dL (8-24); CO2, Blood 24.0 mmol/L (21-32); Calcium, Blood 9.7 mg/dL (8.5-10.1); Chloride, Blood 109.0 mmol/L (98-108); Creatinine, Blood 0.89 mg/dL (0.40-1.00); Glucose, Blood 104.0 mg/dL (70-99); Potassium, Blood 4.3 mmol/L (3.5-5.5); Sodium, Blood 136.0 mmol/L (136-145)
[2025-10-23 07:36] VITALS: BP 114/61
[2025-10-23] MEDS ORDERED: Enoxaparin 40 MG/0.4 ML SYR SC SCH (09:00)
[2025-10-23] MEDS ORDERED: HYDROcodone 5-APAP 325 TAB PO PRN (11:35)
[2025-10-23 11:57] VITALS: BP 122/72
[2025-10-23 15:38] VITALS: BP 135/70
--- NOTE | 2025-10-23 17:39 | NUR ---
PT DROWSY THIS MORNING, ALERT TO PERSON, PLACE, SITUATION AND OFF ON DATE (DAY). SOFT SPOKEN AND FORGETFULNESS NOTED IN AM-PT BECAME MORE ALERT AND SPEECH IMPROVED AND CLEAR TOWARD AFTERNOON. PO PAIN MEDS AVAILABLE PRN FOR CHRONIC BACK PAIN. SOFT DIET AND PT TOLERATING MOSTLY LIUIDS- STATES DOES NOT FEEL VERY HUNGRY- REQUESTS IF FAMILY ABLE TO BRING FOOD FROM OUT OF HOSPITAL-INSTRUCTED THAT IT IS OK. SL, RA, FAMILY AND AT BEDSIDE, CALL LIGHT IN REACH, PURPOSEFUL HOURLY ROUNDING.
[2025-10-23 19:25] VITALS: BP 132/83
[2025-10-23] MEDS ORDERED: Magnesium Hydroxide Conc 10 ML UDC PO PRN (20:30)
[2025-10-24 00:19] VITALS: BP 104/64
--- NOTE | 2025-10-24 04:19 | NUR ---
SHIFT SUMMARY PATIENT HAS IMPROVED SINCE LAST NOC SHIFT IN MENTATION AND AMBULATION WITH ONE ASSIST TO BR WITH GAIT BELT. DENIES CHEST PAIN, SOB, AND N/V. VSS/AFEBRILE. PIV INTACT. TELE MONITOR NSR 75. USES CPAP. CALL LIGHT IN REACH. BED IN LOWEST POSITION. WILL CONTINUE TO MONITOR UNTIL DAY SHIFT NURSE ASSUMES CARE.
[2025-10-24 04:29] VITALS: BP 104/62
[2025-10-24 07:14] VITALS: BP 105/53
[2025-10-24 10:54] VITALS: BP 129/69
[2025-10-24] MEDS ORDERED: LEVE500 PO ×2 (12:58)
[2025-10-24] MEDS ORDERED: SUMA25 PO ×2 (13:22)
--- NOTE | 2025-10-24 13:40 | NUR ---
PT ALERT AND ORIENTED X4, AMBULATORY-INDEPENDENT, SPEECH CLEAR TOLEARTING PO INTAKE WITH NO DIFFICULTY. DC INSTRUCTIONS REVIEWED-NEW MEDS, CHANGES TO HOME MEDS, MED TO BE STOPPED AND CALL TO SCHEDULE FOLLOW UP WITH PCP. PRESCRIPTIONS FAXED TO [facility]. ALL QUESTIONS ANSWERED, ALL BELONGINGS WITH PT UPON DC. PT LEFT UNIT VIA WC IN COMPANY OF [employer], SON TO TAKE PT HOME.
== END 2025-10-24 13:40 | disposition home or self-care (01) | DRG 101 ==
LOC: ER 07:49 → MEDS 07:50 → ENPENDDIS 10-24 12:35 → MEDS 10-24 13:40
PROVIDERS: Emergency Medicine; ADMIT Internal Medicine
DX: R56.9 Unspecified convulsions (principal); N17.9 Acute kidney failure, unspecified; Z66 Do not resuscitate; I10 Essential (primary) hypertension; E78.5 Hyperlipidemia, unspecified; G89.29 Other chronic pain; M54.50 Low back pain, unspecified; E66.9 Obesity, unspecified; K21.9 Gastro-esophageal reflux disease without esophagitis; Z86.73 Personal history of transient ischemic attack (TIA), and cerebral infarction without residual deficits; Z79.82 Long term (current) use of aspirin; Z79.02 Long term (current) use of antithrombotics/antiplatelets; Z79.890 Hormone replacement therapy; Z79.899 Other long term (current) drug therapy; Z68.28 Body mass index [BMI] 28.0-28.9, adult
CPT/HCPCS: 36415; 70450; 70496; 70498; 70551; 80048; 80053; 82803; 82947; 84146; 84484; 85025; 85610; 85651; 85730; 86140; 86141; 93005; 93010; 94762; 96361; 96365-59; 96366-59; 96372; 96375-59; 96376; 97112; 97161; 97165; 99285-25; A6590; A9270; G0378; J1630; J1650; J1953; J2060; J2470; J3030; J7030; J7042; Q9967